=== PATIENT | male | born 1985 | race Caucasian/White ===

== ENCOUNTER 2018-09-26 23:53 | Emergency (ER) | payer BC ==
[~2018-09-26] VITALS: Ht 172.7 cm; Wt 73.9 kg
[2018-09-27] MEDS ORDERED: Tetanus/Diptheria/Pertussis Vaccine 0.5ml Syr IM ONE (00:15)
--- NOTE | 2018-09-27 00:16 | Emergency Room Report ---
History of Present Illness General Chief Complaint: Animal Bite Source: Patient Present Illness HPI This is a 33-year-old male with no past mental history. He presents with a dog bite to the face. He was bitten by his girlfriend's dog. He went down to kiss the dog and it bit him. Sustained small laceration to the right cheek and facial area. Onset was acute. Occurred just prior to arrival. Pain is 8 out of 10. Worse with palpation. The dog's shots are up-to-date. Allergies: Coded Allergies: DOXYCYCLINE (Verified Allergy, Unknown, 09/27/18) Patient History Past Medical History: see triage record, old chart reviewed Past Surgical History: none Pertinent Family History: none Social History: Denies: smoking Immunizations: other Reviewed Nursing Documentation: PMH: Agreed; PSxH: Agreed Review of Systems Eye: Denies: eye pain, blurred vision ENT: Denies: ear pain, nose congestion, throat swelling Respiratory: Denies: cough, shortness of breath Cardiovascular: Denies: chest pain, palpitations Gastrointestinal: Denies: abdominal pain, diarrhea, nausea, vomiting Musculoskeletal: Denies: back pain, joint pain Skin: Denies: rash Neurological: Denies: headache, numbness Endocrine: Denies: increased thirst, increased urine Hematologic/Lymphatic: Denies: easy bruising All Other Systems: negative except mentioned in HPI Physical Exam Vital Signs Date Time Temp Pulse Resp B/P (MAP) Pulse Ox O2 Delivery O2 Flow Rate FiO2 09/26/18 23:58 77 18 126/81 97 Room Air vitals normal Sp02 EP Interpretation: reviewed, normal General Appearance: well appearing, no apparent distress, alert Head: normocephalic, atraumatic Eyes: bilateral eye PERRL, bilateral eye EOMI ENT: hearing grossly normal, normal pharynx, other - Left cheek: He has some abrasion and edema from the dog bite. There are 3 small, 2 mm laceration each. Not through and through. Neck: full range of motion, supple, no meningismus Respiratory: chest non-tender, lungs clear, normal breath sounds Cardiovascular #1: regular rate, rhythm, no murmur Gastrointestinal: normal bowel sounds, non tender, no mass, no organomegaly, no bruit, non-distended Musculoskeletal: back normal, gait/station normal, normal range of motion Psychiatric: mood/affect normal Skin: warm/dry Procedures Laceration/Wound Repair Laceration/Wound Repair : Consent: Verbal Wound Location: face Wound's Depth, Shape: superficial, contused tissue Wound Length (cm): 1 Wound Explored: clean Betadine Prep?: Yes Anesthesia: 1% Lidocaine Volume Anesthetic (ccs): 1 Wound Repaired With: sutures Suture Size/Type: 6:0, other - rapid vicryl Number of Sutures: 3 Patient Tolerated: Well Complications: None Medical Decision Making Diagnostic Impression: Primary Impression: Dog bite of face Qualified Codes: S01.85XA - Open bite of other part of head, initial encounter ; W54.0XXA - Bitten by dog, initial encounter Additional Impression: Laceration of face Qualified Codes: S01.81XA - Laceration without foreign body of other part of head, initial encounter ER Course Patient presents with a superficial laceration from dog bite. Increased risk for infection. No evidence of deep cut area no evidence of foreign body. We' ll discharge home. Last Vital Signs Date Time Temp Pulse Resp B/P (MAP) Pulse Ox O2 Delivery O2 Flow Rate FiO2 09/26/18 23:58 77 18 126/81 97 Room Air Status: improved Disposition: HOME, SELF-CARE Condition: Stable Scripts Ibuprofen* (MOTRIN*) 600 Mg Tablet 600 MG ORAL THREE TIMES A DAY, #30 TAB 0 Refills Prov: Jerome Vazquez MD 09/27/18 Amoxicillin/Potassium Clav 875-125* (AUGMENTIN 875-125 TABLET*) 1 Each Tablet 1 TAB ORAL TWICE A DAY, #14 TAB Prov: Jerome Vazquez MD 09/27/18 Patient Instructions: Animal Bite Additional Instructions: Keep wound clean. Apply antibiotic ointment to area. Sutures will fall off. Follow-up your doctor in 7 days for recheck. Return if worse. Jerome Vazquez MD Sep 27, 2018 00:16
[2018-09-27 00:21] VITALS: BP 126/81
--- NOTE | 2018-09-27 00:26 | NUR ---
ER Nurse Note: Pt came from home with significant other c/o dog bite to the face around 0000. Linear lac to the lower face; redness and no active bleeding. Pt a&ox4, VSS, no signs of distress. 8/10 pain; throbbing and sharp pain. Per significant other, dog is up to date with vaccinations. Wound cleaned by windows laptop technician, ALEKS at pt side with sutures; all orders completed per ERMD orders; will continue to monitor.
[2018-09-27] MEDS ORDERED: AUGMENTIN 875-1 EAC1 ORAL (00:40)
[2018-09-27] MEDS ORDERED: IBUPROFEN600 MG ORAL (00:40)
[2018-09-27] MEDS ORDERED: Bacitracin Oint UD TOPIC ONE (00:45)
[2018-09-27] MEDS ORDERED: HYDROcodone/Acetamin 5/325 tab ORAL ONE (00:45)
[2018-09-27 01:15] VITALS: BP 126/81
--- NOTE | 2018-09-27 01:21 | NUR ---
ED Nurse Note: Pt seen, treated, medically cleared for discharge by ERMD. Discharge instructions and prescriptions given with repeat verbalziaion by pt. Instructed pt to follow up with primary care provider within one week. Pt a&ox4, VSS, no signs of distress. Taught pt about wound care. Animal report filed. ID band removed. Pt left with steady gait via own transporation.
== END 2018-09-27 01:15 | disposition home or self-care (01) ==
LOC: EMR 09-27 00:15
DX: S01.412A Laceration without foreign body of left cheek and temporomandibular area, initial encounter (principal); W54.0XXA Bitten by dog, initial encounter; Y92.009 Unspecified place in unspecified non-institutional (private) residence as the place of occurrence of the external cause; Z23 Encounter for immunization
CPT/HCPCS: 90471; 90715; 99283

== ENCOUNTER 2018-11-09 01:06 | Emergency (ER) | payer BC ==
[~2018-11-09] VITALS: Ht 172.7 cm; Wt 73.9 kg
[~2018-11-09 01:06] MED LIST: AUGMENTIN 875-1 EAC1 ORAL; IBUPROFEN600 MG ORAL
--- NOTE | 2018-11-09 01:17 | NUR ---
ED Nurse Note: pt wheelchaired in c/o left ankle pain, pt states he was playing basketball earlier and accidentally hurt his ankle around 5pm today.
--- NOTE | 2018-11-09 01:24 | Emergency Room Report ---
History of Present Illness General Chief Complaint: Lower Extremity Injury Source: Patient Present Illness HPI Patient twisted his ankle at 5 PM playing basketball. He was initially able to barely walk on it. The pain increased even with ice and elevation. He took 2 Motrin recently and also drank some beer. There is bruising there. He can't weight-bear or walk at this time. Denies numbness. There is bruising on the foot. The pain became severe even with icing and elevation. Radiated to his mid lower leg. Pain was burning and aching. He rated the pain 10/10. Slightly better after alcohol ingestion. Denies major medical problems Allergies: Coded Allergies: DOXYCYCLINE (Verified Allergy, Unknown, 11/09/18) Uncoded Allergies: NUTS (Allergy, Unknown, 11/09/18) Patient History Past Medical History: see triage record Social History: Reports: smoking, alcohol use Social History Narrative [employer] Reviewed Nursing Documentation: PMH: Agreed; PSxH: Agreed Nursing Documentation-PMH Past Medical History: No Stated History Review of Systems Constitutional: Denies: fever Musculoskeletal: Reports: see HPI Skin: Reports: see HPI Neurological: Reports: see HPI Hematologic/Lymphatic: Reports: see HPI Physical Exam Vital Signs Date Time Temp Pulse Resp B/P (MAP) Pulse Ox O2 Delivery O2 Flow Rate FiO2 11/09/18 01:14 98.2 76 18 98 Room Air Sp02 EP Interpretation: reviewed, normal General Appearance: well appearing, no apparent distress, GCS 15 Head: normocephalic, atraumatic Eyes: bilateral eye PERRL, bilateral eye Scleral Injection ENT: hearing grossly normal, normal voice, moist mucus membranes Neck: full range of motion, supple Respiratory: no respiratory distress, speaking full sentences Cardiovascular #1: regular rate, rhythm Cardiovascular #2: 2+ radial (L), 2+ dorsalis pedis (L) Gastrointestinal: normal inspection Musculoskeletal: digits/nails normal, no calf tenderness, swelling, other - Swelling dorsal lateral aspect of the left foot with point tenderness over the medial fifth metatarsal without crepitance. Ankle with minimal tenderness and no swelling Neurologic: alert, motor strength/tone normal, sensory intact - Distal, normal gait Psychiatric: mood/affect normal Skin: no rash, hematoma - Dorsum left foot Medical Decision Making Diagnostic Impression: Primary Impression: Sprain of left foot Qualified Codes: S93.602A - Unspecified sprain of left foot, initial encounter ER Course Patient presents with left ankle injury and unable to ambulate. Based on exam suspicion for fifth metatarsal fracture versus ankle injury. X-rays are indicated. In addition [place] I will be given. X-ray of ankle reveals no fracture. However doesn't include enough of the foot. Patient with improved pain. Foot x-ray ordered. Foot x-ray does not reveal any fracture. Patient placed in a short leg splint. Position is excellent and neurovascular is normal as checked by me. Patient has great relief of pain at this time. Discussed treatment plan and the need for follow-up. Patient is stable for outpatient observation and treatment. Other X-Ray Diagnostic Results Other X-Ray Diagnostic Results #1: X-Ray ordered: left ankle # of Views/Limited Vs Complete: 3 View Indication: Pain EP Interpretation: Yes Interpretation: no dislocation, no soft tissue swelling, no fractures Impression: No acute disease Electronically Signed by: Electronically signed by Chema Tomas MD Other X-Ray Diagnostic Results #2: X-Ray ordered: Left foot # of Views/Limited Vs Complete: 3 View Indication: Pain EP Interpretation: Yes Interpretation: no dislocation, no soft tissue swelling, no fractures Impression: No acute disease Electronically Signed by: Electronically signed by Chema Tomas MD Last Vital Signs Date Time Temp Pulse Resp B/P (MAP) Pulse Ox O2 Delivery O2 Flow Rate FiO2 11/09/18 03:32 98.2 74 18 124/79 100 Room Air Status: improved Disposition: HOME, SELF-CARE Condition: Improved Scripts Hydrocodone Bit/Acetaminophen 5-325* (NORCO 5-325*) 1 Each Tablet 1 TAB ORAL Q6H PRN for For Pain, #8 TAB 0 Refills Prov: Chema Tomas MD 11/09/18 Ibuprofen* (MOTRIN*) 600 Mg Tablet 600 MG ORAL Q6H PRN for For Pain, #20 TAB Prov: Chema Tomas MD 11/09/18 Chema Tomas MD November 09, 2018 01:24
[2018-11-09] MEDS ORDERED: HYDROcodone/Acetamin 5/325 tab ORAL ONE (01:30)
--- NOTE | 2018-11-09 01:39 | NUR ---
ED Nurse Note: ROPEMAN AT BEDSIDE
--- NOTE | 2018-11-09 01:45 | NUR ---
ED Nurse Note: XRAY COMPELTED
--- NOTE | 2018-11-09 02:29 | Diagnostic Imaging Report ---
EXAM: XR Left Ankle Complete, 3 or More Views CLINICAL HISTORY: TRAUMA TECHNIQUE: Frontal, lateral and oblique views of the left ankle. COMPARISON: No relevant prior studies available. FINDINGS: Bones/joints: Unremarkable. No acute fracture. No dislocation. Soft tissues: Unremarkable. IMPRESSION: Normal left ankle x-rays.
--- NOTE | 2018-11-09 02:46 | Diagnostic Imaging Report ---
EXAM: XR Left Foot Complete, 3 or More Views CLINICAL HISTORY: TRAUMA TECHNIQUE: Frontal, lateral and oblique views of the left foot. COMPARISON: No relevant prior studies available. FINDINGS: Bones/joints: Unremarkable. No acute fracture. No dislocation. Soft tissues: Unremarkable. No radiopaque foreign body. IMPRESSION: Normal left foot x-rays.
[2018-11-09] MEDS ORDERED: IBUPROFEN600 MG ORAL (03:25)
[2018-11-09] MEDS ORDERED: NORCO 5-325 TA1 EACH ORAL (03:25)
[2018-11-09 03:32] VITALS: BP 124/79
--- NOTE | 2018-11-09 03:33 | NUR ---
ER DISCHARGE NOTE: Patient is cleared to be discharged per ERMD, pt is aox4, on room air, with stable vital signs. pt was given dc and prescription instructions, pt was able to verbalize understanding, pt id band reomved. pt is able to ambulate with steady gait with short leg splint and crutches. pt took all belongings. escorted by girlfriend
== END 2018-11-09 03:30 | disposition home or self-care (01) ==
LOC: EMR 01:32
DX: S93.602A Unspecified sprain of left foot, initial encounter (principal); F17.200 Nicotine dependence, unspecified, uncomplicated; Z88.8 Allergy status to other drugs, medicaments and biological substances; Z91.018 Allergy to other foods; Y93.67 Activity, basketball
CPT/HCPCS: 29515; 99283